=== PATIENT | female | born 1990 | race Caucasian/White ===

== ENCOUNTER 2017-02-20 23:00 | Inpatient (IN) | payer OTHER ==
[~2017-02-20] VITALS: Ht 160 cm; Wt 54.4 kg
--- NOTE | ~2017-02-20 | PA ---
Unit #: [id number] #: [id number] Patient: WENDIE TEIXEIRA [id number] [place] [address] [id number] I MR#: [id number] NAME: WENDIE TEIXEIRA ROOM: [facility] Age: 26 Sex: F Admission Date: 02/21/2017 : 1990 Date of Assessment: 02/21/2017 Attending Physician: Nicanor Bergman M.D. Admitting Physician: Nicanor Bergman M.D. Primary Care Physician: Primary Care Physician No PSYCHIATRIC ASSESSMENT IDENTIFYING INFORMATION The patient is a 26-year-old white female admitted to the [address] [place] [address] with a history of opioid dependence. CHIEF COMPLAINT None given. INFORMANT Chart, patient could not be aroused for interview. HISTORY OF PRESENT ILLNESS The patient is a 26-year-old white female who is admitted with a history of heroin dependence. The patient reports that because of her heroin abuse she is at risk to lose her relationship and her children. The patient reports no suicide attempts but does report that one year ago she actually overdosed on heroin. The patient reports increasing depressive symptoms but denies any suicidal ideation. She has been in outpatient chemical dependence treatment at [facility] in the past. PAST PSYCHIATRIC HISTORY As above. PAST MEDICAL HISTORY Noncontributory. MEDICATIONS None. ALLERGIES Fish. FAMILY HISTORY Noncontributory. SOCIAL HISTORY The patient lives with her fiance and three children. Her substance use history is noted previously. MENTAL STATUS EXAMINATION At this time reveals the patient to be a thin white female, appearing her stated age. She is abed and cannot be aroused for further interview despite multiple attempts. The patient's assets to be assessed. Liabilities lack of resources. Unit #: [id number] #: [id number] Patient: WENDIE TEIXEIRA DIAGNOSTIC IMPRESSION 1. Opioid use disorder. 2. Sedative hypnotic use disorder. 3. Urinary tract infection. PSYCHIATRIC PLAN/TREATMENT GOALS The patient will remain hospitalized for safety and stabilization. We will continue her trial of Bactrim and a routine detoxification protocol for opioids has been initiated. ESTIMATED LENGTH OF STAY Three to five days. Dictated by... Nicanor Bergman M.D. CB/demi TD: 02/22/2017 04:03 JOB #: [id number] PSYCHIATRIC ASSESSMENT Page 1 of 1 X Nicanor Bergman MD PSYCHIATRIC ASSESSMENT
--- NOTE | ~2017-02-20 | PN ---
Unit #: [id number] #: [id number] Patient: WENDIE TEIXEIRA [id number] [facility] [address] [place] [address] [id number] I MR#: [id number] NAME: WENDIE TEIXEIRA ROOM: [facility] Age: 26 Sex: F Admission Date: 02/21/2017 : 1990 Attending Physician: Nicanor Bergman M.D. Admitting Physician: Nicanor Bergman M.D. Primary Care Physician: Primary Care Physician Mis GONZALEZ PROGRESS NOTES DATE 02/23/2017 DISCUSSION The patient remains in significant physical distress related to opiate withdrawal but is able to work with this physician when seen today. She is expressing interest in returning to the [facility] outpatient program where she has apparently been enrolled in the past. Should she sustain progress, discharge should take place no later than Tuesday though the patient's detox symptoms still appear to be rather severe during today's interview. Dictated by... Nicanor Bergman M.D. CB/jany TD: 02/23/2017 15:07 JOB #: [id number] LISA PROGRESS NOTES Page 1 of 1 X Nicanor Bergman MD PROGRESS NOTE
--- NOTE | ~2017-02-20 | DS ---
Unit #: [id number] #: [id number] Patient: WENDIE TEIXEIRA [id number] [facility] [address] [place] [address] [id number] I MR#: [id number] NAME: WENDIE TEIXEIRA ROOM: [facility] Age: 26 Sex: F Admission Date: 02/21/2017 : 1990 Discharge Date: 02/24/2017 Attending Physician: Nicanor Bergman M.D. Primary Care Physician: Primary Care Physician No DISCHARGE SUMMARY REASON FOR ADMISSION The patient is a 26-year-old single white female, admitted for opioid detox. HOSPITAL COURSE The patient was admitted to the [facility] unit and placed on routine detoxification protocol for opioids. Her detox was a fairly arduous one but by 02/24 she was in [place] and exhibited no signs or symptoms of withdrawal. She requested discharge stating a plan to continue treatment in the intensive outpatient program at the [facility]. Discharge was ordered. DISCHARGE DIAGNOSES [place] I Opioid use disorder. [place] II [place] III [place] IV [place] V DISPOSITION ON DISCHARGE The patient will continue previously prescribed medications including Keflex 250 mg three times daily, and Bactrim DS one tablet twice daily both for infection. PROGNOSIS The patient's prognosis is considered fair. DIET AND ACTIVITY No dietary or physical restrictions were placed on the patient at the time of discharge. Follow up will take place through the offices of the [facility]. Dictated by... Nicanor Bergman M.D. Unit #: [id number] #: [id number] Patient: WENDIE TEIXEIRA SVETA/janay TD: 02/25/2017 08:31 JOB #: [id number] DISCHARGE SUMMARY Page 1 of 1 X Nicanor Bergman MD X DISCHARGE SUMMARY
--- NOTE | ~2017-02-20 | PN ---
Unit #: [id number] #: [id number] Patient: WENDIE TEIXEIRA [id number] [facility] [address] [place] [address] [id number] I MR#: [id number] NAME: WENDIE TEIXEIRA ROOM: [facility] Age: 26 Sex: F Admission Date: 02/21/2017 : 1990 Attending Physician: Nicanor Bergman M.D. Admitting Physician: Nicanor Bergman M.D. Primary Care Physician: Primary Care Physician Mis GONZALEZ PROGRESS NOTES DATE OF SERVICE 02/22/2017 DISCUSSION The patient remains abed with little participation within the therapeutic milieu. I have encouraged staff to encourage the patient and increase her participation within the therapeutic milieu. Her detox continues uneventfully. Dictated by... Nicanor Bergman M.D. CB/bzg TD: 02/22/2017 14:30 JOB #: [id number] [facility] PROGRESS NOTES Page 1 of 1 X Nicanor Bergman MD X PROGRESS NOTE
--- NOTE | ~2017-02-20 | HP ---
Unit #: [id number] #: [id number] Patient: WENDIE TEIXEIRA [id number] [place] [address] [id number] I MR#: [id number] NAME: WENDIE TEIXEIRA ROOM: [facility] Age: 26 Sex: F Admission Date: 02/21/2017 : 1990 Attending Physician: Nicanor Bergman M.D. Admitting Physician: Nicanor Bergman M.D. Primary Care Physician: Primary Care Physician No HISTORY AND PHYSICAL HISTORY OF PRESENT ILLNESS Wendie is a 26 year old admitted to [facility] because of her drug use. She shoots heroin. PAST MEDICAL HISTORY 1. Long history of opioid abuse to include IV heroin. 2. Hepatitis C. 3. History of withdrawal seizures. PAST SURGICAL HISTORY 1. x4. 2. Breast augmentation. ALLERGIES No known drug allergies. SOCIAL HISTORY Smokes one pack per day. Denies alcohol. Admits to a long history of opioid abuse to include IV heroin. FAMILY HISTORY Medically noncontributory. REVIEW OF SYSTEMS CONSTITUTIONAL: No fever or chills. HEENT: Denies any sore throat, ear pain or runny nose. CARDIOVASCULAR: Denies chest pain, irregular heart rhythm or palpitations. CHEST: Denies shortness of breath or cough. No hemoptysis. GASTROINTESTINAL: Denies nausea, vomiting, diarrhea or chronic constipation. ENDOCRINE: Denies history of increased thirst or urination. No recent significant weight loss or gain. GENITOURINARY: Denies dysuria, frequency, or hematuria. SKIN: Denies any rashes. HEMATOLOGIC: Denies history of increased bleeding or bruising. MUSCULOSKELETAL: Denies any hot, swollen joints. No generalized muscle pain. NEUROLOGIC: Denies problems with vision or speech. No frequent, severe headaches. No numbness, tingling or weakness in any extremities. Denies loss of bladder or bowel control. CURRENT MEDICATIONS Unit #: [id number] #: [id number] Patient: WENDIE TEIXEIRA 1. Detox protocol 2. Keflex 500 mg t.i.d. 3. Bactrim DS 1 p.o. b.i.d. PHYSICAL EXAMINATION GENERAL: Alert, well-nourished, in no apparent distress. VITAL SIGNS: Blood pressure 100/60, heart rate 80, respirations 16, temperature 98.6. WEIGHT: 120 pounds. HEIGHT: 5'3". SKIN: Warm and dry without rash. She has multiple red swollen slightly warm and tender areas along her right hand both legs, left breast. These are all sights of IV drug use. HEENT: Normocephalic. TMs not viewed. Oral and nasal passages clear. Conjunctivae clear. Pupils equal, round and reactive to light and accommodation. Extraocular movements intact. NECK: Supple without lymphadenopathy or thyromegaly. HEART: Regular rate and rhythm without murmur. LUNGS: Clear. ABDOMEN: Soft, nontender. : Not done. EXTREMITIES: No evidence of cyanosis, clubbing or edema. Moves all extremities without focal deficit. NEUROLOGICAL: Grossly within normal limits. Cranial Nerves: II: Visual armendariz are intact. III, IV AND : Extraocular movements are intact. Pupils are equal, round and reactive to light. V: Facial sensation is grossly normal. VII: Facial movements and expression are normal. VIII: Auditory acuity grossly intact. IX, X: Uvula is midline. Phonation is normal. XI: Patient shrugs shoulders and turns head normally. XII: Tongue protrudes in the midline. Sensory and Motor Function: Sensory and motor sensation is grossly normal. Motor: moves all extremities well. Coordination: Gait is normal. Deep Tendon Reflexes: Intact. IMPRESSION Psychiatric admission. RECOMMENDATIONS PSYCHIATRIC: Per psychiatrist. MEDICAL: 1. I see no contraindications to participating in facility's activities. 2. Detox per protocol. 3. Continue antibiotics. MEDICAL PROGNOSIS Good. MEDICAL CONDITION Stable. Dictated by... Lonnie CaicedoAShekhar for Unit #: [id number] #: [id number] Patient: WENDIE TEIXEIRA Nancy Mensah/demi TD: 02/22/2017 00:49 JOB #: [id number] HISTORY AND PHYSICAL Page 1 of 1 X Jaz Moe HISTORY AND PHYSICAL
[~2017-02-20 23:00] MED LIST: PRENATAL W/FOLI1 TA1 PO
[2017-02-22 09:55] LABS: BASOPHIL% 0.9 % (0-2.5); EOSINOPHIL# 0.1 X10e3 (0-0.7); EOSINOPHIL% 2.8 % (0.0-7.0); HEMATOCRIT 31.5 % (35.0-45.0); HEMOGLOBIN 10.3 gm/dL (12.0-16.0); LYMPHOCYTE# 1.5 X10e3 (1.0-3.5); LYMPHOCYTE% 36.4 % (17.0-45.0); MEAN CELL VOLUME 78.7 FL (83-96); MEAN CORPUSCULAR HEMOGLOBIN 25.8 PG (28-34); MEAN CORPUSCULAR HGB CONC 32.8 g/dL (30-36); MEAN PLATELET VOLUME 8.3 FL (6.5-11.5); MONOCYTE# 0.5 X10e3 (0-1.0); MONOCYTE% 13.1 % (3.0-12.0); NEUTROPHIL% 46.8 % (40-75); PLATELET COUNT 175 X10e3 (140-420); RED BLOOD COUNT 4.01 X10e (3.90-5.30); RED CELL DISTRIBUTION WIDTH 17.4 % (11.0-15.5); WHITE BLOOD COUNT 4.2 X10e3 (4.0-10.5)
[2017-02-22 10:00] LABS: DIFF IND NO
[2017-02-22 10:53] LABS: ALBUMIN SERUM 2.9 g/dL (3.5-5.0); ALKALINE PHOSPHATASE 71 U/L (32-92); ALT (SGPT) 25 U/L (10-40); AST (SGOT) 36 U/L (10-42); BLOOD UREA NITROGEN 8 mg/dL (9-23); CALCIUM SERUM 8.9 mg/dL (8.4-10.2); CARBON DIOXIDE 26 mmol/L (22-31); CHLORIDE 105 mmol/L (100-111); CREATININE SERUM 0.8 mg/dL (0.6-1.4); GLOM FILT RATE Estimated 100.4 mL/min (>60); GLUCOSE FASTING 84 mg/dL (70-110); POTASSIUM 4.1 mmol/L (3.5-5.1); PROTEIN TOTAL SERUM 6.9 g/dL (6.0-8.3); SODIUM 140 mmol/L (135-145)
[2017-02-22 10:56] LABS: BILIRUBIN,TOTAL <0.1 mg/dL (0.2-2.0)
[2017-02-23 09:55] LABS: U HYALINE CASTS AUWI 0-2 /[LPF]; URINE APPEARANCE CLEAR; URINE BACTERIA AUWI 1+ (NEGATIVE); URINE BILIRUBIN NEG (NEG); URINE BLOOD TRACE (NEG); URINE COLOR YELLOW; URINE GLUCOSE NEG (NEG); URINE KETONE NEG (NEG); URINE LEUKOCYTE ESTERASE NEG (NEG); URINE NITRATE NEG (NEG); URINE PROTEIN NEG (NEG); URINE SPECIFIC GRAVITY 1.014 (1.003-1.035); URINE SQUAMOUS EPITHELIAL CELL OCC /[HPF]; URINE UROBILINOGEN 0.2 MG/DL (NEG)
[2017-02-23 10:24] LABS: AMPHETAMINE NEG (NEG); BARBITURATES NEG (NEG); BENZODIAZEPINES POS (NEG); COCAINE NEG (NEG); MARIJUANA NEG (NEG); OPIATES NEG (NEG); TRICYCLIC ANTIDEPRESSANTS NEG (NEG); U METHADONE NEG (NEG)
== END 2017-02-24 15:30 | DRG 897 ==
LOC: P1E 02-21 02:26
PROVIDERS: Specialist
PROC: HZ2ZZZZ Detoxification Services for Substance Abuse Treatment (ICD-10-PCS; principal; 2017-02-21)
DX: F11.20 Opioid dependence, uncomplicated (principal); F13.20 Sedative, hypnotic or anxiolytic dependence, uncomplicated; N39.0 Urinary tract infection, site not specified; F17.200 Nicotine dependence, unspecified, uncomplicated
CPT/HCPCS: 80053; 80307; 81003; 84703; 85025; 86592

== ENCOUNTER 2017-03-20 20:00 | Inpatient (IN) | payer OTHER ==
[~2017-03-20] VITALS: Ht 160 cm; Wt 54.4 kg
--- NOTE | ~2017-03-20 | PN ---
Unit #: [id number] #: [id number] Patient: WENDIE TEIXEIRA [id number] [facility] [address] [place] [address] [id number] I MR#: [id number] NAME: WENDIE TEIXEIRA ROOM: [facility] Age: 26 Sex: F Admission Date: 03/20/2017 : 1990 Attending Physician: Nicanor Bergman M.D. Admitting Physician: Nicanor Bergman M.D. Primary Care Physician: Primary Care Physician Mis GONZALEZ PROGRESS NOTES DATE 03/22/2017 DISCUSSION The patient remains in significant physical distress related to opioid withdrawal and complains of poor sleep. I will add Melatonin 6 mg at h.s., and I have spoken with the patient today regarding post-discharge planning. The patient expresses interest in the intensive outpatient program once discharged. Dictated by... Nicanor Bergman M.D. CB/jackie TD: 03/22/2017 14:33 JOB #: [id number] [facility] [place] NOTES Page 1 of 1 X Nicanor Bergman MD PROGRESS NOTE
--- NOTE | ~2017-03-20 | DS ---
Unit #: [id number] #: [id number] Patient: WENDIE TEIXEIRA [id number] [facility] [address] [place] [address] [id number] I MR#: [id number] NAME: WENDIE TEIXEIRA ROOM: [facility] Age: 26 Sex: F Admission Date: 03/20/2017 : 1990 Discharge Date: 03/23/2017 Attending Physician: Nicanor Bergman M.D. Primary Care Physician: Primary Care Physician No DISCHARGE SUMMARY REASON FOR ADMISSION The patient is a 26-year-old white female, admitted to the [address] [place] [address] for opioid detox. LABORATORY DATA Included negative Beta HCG. Other labs were pending at the time of discharge. HOSPITAL COURSE The patient was admitted to the [address] [place] [address] and placed on a routine detoxification protocol for opioids. Because of poor sleep she was begun on melatonin 6 mg at h.s. p.r.n. insomnia. Otherwise, her stay in the hospital was uneventful one. She did admit that she had fabricated suicidal ideation in order to assure that she would be admitted to hospital. She denied suicidal ideation on 03/23 and exhibited no signs or symptoms of withdrawal. She exhibited future orientation stating a wish to continue participation in NA as well as attending the chemical dependence intensive outpatient program. As per her request discharge was ordered. FINAL DIAGNOSES Opioid use disorder. DISPOSITION ON DISCHARGE No psychotropic or other medications were ordered at the time of discharge. Followup to place through the auspices of chemical dependence intensive outpatient program provided by this facility. PROGNOSIS The patient's prognosis is considered fair. Dictated by... Nicanor Bergman M.D. CB/demi TD: 03/24/2017 04:40 JOB #: [id number] Unit #: [id number] #: [id number] Patient: WENDIE TEIXEIRA DISCHARGE SUMMARY Page 1 of 1 X Nicanor Bergman MD X DISCHARGE SUMMARY
--- NOTE | ~2017-03-20 | PA ---
Unit #: [id number] #: [id number] Patient: WENDIE TEIXEIRA [id number] [place] [address] [id number] I MR#: [id number] NAME: WENDIE TEIXEIRA ROOM: [facility] Age: 26 Sex: F Admission Date: 03/20/2017 : 1990 Date of Assessment: 03/21/2017 Attending Physician: Nicanor Bergman M.D. Admitting Physician: Nicanor Bergman M.D. Primary Care Physician: Primary Care Physician No PSYCHIATRIC ASSESSMENT IDENTIFYING INFORMATION The patient is a 26-year-old white female admitted with recurrent abuse of heroin and Xanax. CHIEF COMPLAINT None given. INFORMANT(S) Patient and chart. RELIABILITY Good. HISTORY OF PRESENT ILLNESS The patient is a 26-year-old single white female just discharged from this facility on 02/24/2017. The patient reports that she maintained sobriety from heroin and Xanax for approximately one week. She did not comply with prescribed aftercare. The patient returns to the hospital complaining that she is "tired of doing this." She was reporting vague suicidal ideation at the time of admission but currently denies suicidal ideation. She states that she "does want to get her life back." For more complete history of present illness please refer to previously dictated notes. PAST PSYCHIATRIC HISTORY Reviewed no changes. PAST MEDICAL HISTORY Reviewed no changes. MEDICATIONS None. ALLERGIES None reported. FAMILY HISTORY Reviewed no changes. SOCIAL HISTORY Reviewed no changes. MENTAL STATUS EXAMINATION At this time reveals the patient to be a well-developed, well-nourished Unit #: [id number] #: [id number] Patient: WENDIE TEIXEIRA white female, appearing her stated age. She is in significant physical distress related to opioid withdrawals. She is awake, alert, and oriented in all spheres. Her mood is dysphoric. His affect is blunted. Speech is generally relevant and coherent. There are no gross deficits in memory or cognition noted. Intelligence is judged to be in the average range based on fund of knowledge. The patient is cooperative throughout the interview. She is currently reporting no suicidal or homicidal ideation or psychotic features. Judgment and insight appear to be intact. ASSETS AND LIABILITIES ASSETS: Motivation for change. LIABILITIES: Lack of resources. DIAGNOSTIC IMPRESSION 1. Opioid use disorder. 2. Sedative hypnotic use disorder. TREATMENT PLAN The patient remains hospitalized for safety and stabilization. A routine detoxification protocol for opioids has been initiated. The patient will participate in appropriate alfredo and milieu activities. ESTIMATED LENGTH OF STAY Five to seven days. Dictated by... Nicanor Bergman M.D. CB/demi TD: 03/21/2017 21:36 JOB #: [id number] PSYCHIATRIC ASSESSMENT Page 1 of 1 X Nicanor Bergman MD X PSYCHIATRIC ASSESSMENT
--- NOTE | ~2017-03-20 | HP ---
Unit #: [id number] #: [id number] Patient: WENDIE TEIXEIRA [id number] [facility] [address] [place] [address] [id number] I MR#: [id number] NAME: WENDIE TEIXEIRA ROOM[place] [facility] [place] Age: 26 Sex: F Admission Date: 03/20/2017 : 1990 Attending Physician: Nicanor Bergman M.D. Admitting Physician: Nicanor Bergman M.D. Primary Care Physician: Primary Care Physician No HISTORY AND PHYSICAL NOTE The patient is a 26-year-old female admitted to [address] [place] [address] on 03/20/2017 for suicidal ideations. The patient had a recent admission on 02/21/2017 where a full history and physical was completed. That history and physical has been reviewed. No changes need to be made. Dictated by... Milagros Conde A.P.R.N. EF/bzg TD: 03/22/2017 06:52 JOB #: [id number] HISTORY AND PHYSICAL Page 1 of 1 X MILAGROS CONDE APRN X HISTORY AND PHYSICAL
[2017-03-23 13:44] LABS: URINE APPEARANCE CLEAR; URINE BILIRUBIN NEG (NEG); URINE BLOOD NEG (NEG); URINE COLOR YELLOW; URINE GLUCOSE NEG (NEG); URINE KETONE NEG (NEG); URINE LEUKOCYTE ESTERASE 1+ (NEG); URINE NITRATE NEG (NEG); URINE PROTEIN NEG (NEG); URINE SPECIFIC GRAVITY 1.012 (1.003-1.035); URINE UROBILINOGEN 0.2 MG/DL (NEG)
[2017-03-23 13:50] LABS: U HYALINE CASTS AUWI 0-2 /[LPF]; URBCS1 AUWI 0-2 /[HPF] (0-2); URINE BACTERIA AUWI NEG (NEGATIVE); URINE SQUAMOUS EPITHELIAL CELL FEW /[HPF]
[2017-03-23 14:20] LABS: AMPHETAMINE NEG (NEG); BARBITURATES NEG (NEG); BENZODIAZEPINES NEG (NEG); COCAINE NEG (NEG); MARIJUANA NEG (NEG); OPIATES POS (NEG); TRICYCLIC ANTIDEPRESSANTS NEG (NEG); U METHADONE NEG (NEG)
== END 2017-03-23 13:56 | DRG 897 ==
LOC: P2S 23:42 → POF 03-23 05:22 → P2S 03-23 05:25
PROVIDERS: Specialist
PROC: HZ2ZZZZ Detoxification Services for Substance Abuse Treatment (ICD-10-PCS; principal; 2017-03-20)
DX: F11.10 Opioid abuse, uncomplicated (principal); R45.851 Suicidal ideations; F13.10 Sedative, hypnotic or anxiolytic abuse, uncomplicated
CPT/HCPCS: 80307; 81003; 84703